=== PATIENT | male | born 1945 | race Caucasian/White ===

== ENCOUNTER 2020-11-18 04:16 | Observation (INO) | payer OTHER ==
[~2020-11-18] VITALS: Ht 198.1 cm; Wt 163.2 kg
[~2020-11-18 04:16] MED LIST: ALBUAER3 IN; ALLO100T PO; AMIO200T33 PO; AMLO-489 PO; APIX5TAB OR; BUDE160A3 INH; COLC1TAB3 PO; FEBU40TA PO; FLUO-125 PO; GABA800T97 PO; IMIQ5CRE4 TOP; INSUPOW; INSUPOW SC; ISOS10TA45 PO; LACT12LO26; LOSA-39 PO; PROP60CA34 PO; SIMV-8 PO; TAMS0.4C36 PO; TORS20TA20 PO; VENL1TAB99 PO; WARF3TAB20 PO; WARF3TAB22 PO
[2020-11-18] MEDS ORDERED: ONDANSETRON HCL 4 MG/2 ML VIAL IV ONE ×2 (04:30→07:00)
[2020-11-18] MEDS ORDERED: MORPHINE SULFATE 4 MG/ML SYR/VIAL IV ONE (04:30)
[2020-11-18 05:23] LABS: Basophils # (auto) 0.1 10 ^3/uL (0-0.2); Basophils % (auto) 0.6 % (0.0-2.0); Eosinophils # (auto) 0.5 10 ^3/uL (0-0.8); Eosinophils % (auto) 3.4 % (0.0-7.0); Hematocrit 49.1 % (41.0-53.0); Hemoglobin 15.8 g/dL (13.5-17.5); Lymphocytes # (auto) 1.9 10 ^3/uL (0.4-5.4); Lymphocytes % (auto) 14.1 % (10.0-50.0); Mean Corpuscular Hemoglobin 28.6 pg (28.0-32.0); Mean Corpuscular Hgb Conc. 32.3 g/dL (32.0-36.0); Mean Corpuscular Volume 88.6 fL (80.0-100.0); Monocytes # (auto) 1.4 10 ^3/uL (0-1.3); Monocytes % (auto) 10.4 % (0.0-12.0); Neutrophils # (auto) 9.6 10 ^3/uL (1.6-8.6); Neutrophils % (auto) 71.5 % (37.0-80.0); Platelet Count (auto) 254 10^3/uL (140-450); Red Blood Cells 5.54 10^6/uL (4.5-5.90); Red Cell Distribution Width 15.6 % (11.8-14.3); White Blood Cell 13.4 10^3/uL (4.4-10.8)
[2020-11-18 05:44] LABS: Amylase 106 U/L (25-115); Anion Gap 7 (5-15); Blood Urea Nitrogen 28 mg/dL (7-18); Calcium 9.3 mg/dL (8.5-10.1); Carbon Dioxide 22 mmol/L (21-32); Chloride 111 mmol/L (98-107); Glucose 82 mg/dL (74-106); Lipase 64 U/L (73-393); Potassium 3.7 mmol/L (3.5-5.1); Sodium 140 mmol/L (136-145)
[2020-11-18 05:50] LABS: Alanine Aminotransferase 20 U/L (16-61); Alkaline Phosphatase 111 U/L (45-117); Aspartate Aminotransferase 25 U/L (15-37); BUN/Creatinine Ratio 12.7; Bilirubin, Total 0.7 mg/dL (0.2-1.0); GFR African American 38 mL/min; GFR Non-African American 31 mL/min; Total Protein 7.9 g/dL (6.4-8.2)
[2020-11-18] MEDS ORDERED: LABETALOL HCL 5 MG/ML 4ML SYRINGE IV ONE (07:00)
[2020-11-18 08:38] LABS: Urine Bacteria NONE SEEN /hpf (None Seen); Urine Blood 1+ /uL (Negative); Urine Specific Gravity 1.018 (1.001-1.035); Urine WBC <1 /hpf (0 - 3)
[2020-11-18 08:55] LABS: INR 1.13 (0.9-1.15)
[2020-11-18] MEDS ORDERED: NITROGLYCERIN 0.4 MG SL TAB SL PRN (12:45)
[2020-11-18] MEDS ORDERED: HEPARIN SODIUM (PORCINE) 5000 UNITS/ML 1ML VIAL IV ONE ×2 (12:45→13:45)
[2020-11-18] MEDS ORDERED: MORPHINE SULF INJ 2 MG/ML SYRINGE 1ML IV PRN (12:45)
[2020-11-18] MEDS ORDERED: ONDANSETRON HCL 4 MG/2 ML VIAL IV PRN (12:45)
[2020-11-18] MEDS ORDERED: DEXTROSE (50%) 50ML SYRG IV PRN (12:45)
[2020-11-18] MEDS ORDERED: hydrALAZINE HCL 20 MG/ML VL IV PRN (13:00)
[2020-11-18 13:20] LABS: Basophils # (auto) 0.1 10 ^3/uL (0-0.2); Basophils % (auto) 0.5 % (0.0-2.0); Eosinophils # (auto) 0.1 10 ^3/uL (0-0.8); Eosinophils % (auto) 0.8 % (0.0-7.0); Hematocrit 48.4 % (41.0-53.0); Hemoglobin 15.6 g/dL (13.5-17.5); Lymphocytes # (auto) 2.2 10 ^3/uL (0.4-5.4); Lymphocytes % (auto) 18.3 % (10.0-50.0); Mean Corpuscular Hemoglobin 28.5 pg (28.0-32.0); Mean Corpuscular Hgb Conc. 32.3 g/dL (32.0-36.0); Mean Corpuscular Volume 88.1 fL (80.0-100.0); Monocytes # (auto) 1.2 10 ^3/uL (0-1.3); Monocytes % (auto) 9.6 % (0.0-12.0); Neutrophils # (auto) 8.6 10 ^3/uL (1.6-8.6); Neutrophils % (auto) 70.8 % (37.0-80.0); Platelet Count (auto) 243 10^3/uL (140-450); Red Blood Cells 5.49 10^6/uL (4.5-5.90); Red Cell Distribution Width 15.9 % (11.8-14.3); White Blood Cell 12.2 10^3/uL (4.4-10.8)
[2020-11-18] MEDS ORDERED: GASTROGRAFIN 120 ML SOL ONE ×2 (13:22→13:56)
[2020-11-18 13:32] LABS: INR 1.13 (0.9-1.15); Partial Thromboplastin Time 33.8 sec (23.0-31.2)
[2020-11-18] MEDS ORDERED: ALBUTEROL SULF HFA 90MCG INH 200DOSE IN PRN (14:00)
[2020-11-18 16:21] VITALS: BP 188/87
[2020-11-18] MEDS: HEPARIN DRIP/D5W 100UNITS/ML 250 ML IV SCH (17:09)
[2020-11-18] MEDS: D5W/SOD CHL 0.45% 1,000 ML IV SCH ×2 (17:10→22:16)
[2020-11-18 17:30] VITALS: BP 152/78
[2020-11-18] MEDS ORDERED: HYDROmorphone HCL 2 MG/ML VL IV PRN (17:30)
[2020-11-18] MEDS ORDERED: diphenhdrAMINE HCL 50 MG/1 ML VL IV ONE (17:30)
[2020-11-18] MEDS ORDERED: OPTISON 3ml Vial for INJ IV ONE (17:32)
[2020-11-18] MEDS: InsuLIN REG 1unit/0.01ml Soln (100units/ml) SC SCH (18:13)
[2020-11-18] MEDS: ACCU-CHEK COMFORT CURVE STRIP VI SCH (18:13)
[2020-11-18 18:46] VITALS: BP 135/82
[2020-11-18 19:57] LABS: INR 1.15 (0.9-1.15); Partial Thromboplastin Time 39.5 sec (23.0-31.2)
[2020-11-18 22:00] VITALS: BP 160/74
[2020-11-18] MEDS: HYDROmorphone HCL 2 MG/ML VL IV PRN (22:33)
[2020-11-19] MEDS ORDERED: METOPROLOL TARTRATE 50 MG TAB PO ONE (00:15)
[2020-11-19] MEDS: InsuLIN REG 1unit/0.01ml Soln (100units/ml) SC SCH ×5 (00:28→23:35)
[2020-11-19] MEDS ORDERED: METOPROLOL TARTRATE 1MG/1ML-5ML VIAL IV ONE (00:30)
[2020-11-19 01:19] LABS: INR 1.14 (0.9-1.15); Partial Thromboplastin Time 45.8 sec (23.0-31.2)
[2020-11-19 05:00] VITALS: BP 151/64
[2020-11-19] MEDS: ACCU-CHEK COMFORT CURVE STRIP VI SCH ×5 (05:34→23:24)
[2020-11-19 07:36] LABS: Basophils # (auto) 0 10 ^3/uL (0-0.2); Basophils % (auto) 0.3 % (0.0-2.0); Eosinophils # (auto) 0.4 10 ^3/uL (0-0.8); Eosinophils % (auto) 2.3 % (0.0-7.0); Hematocrit 46.9 % (41.0-53.0); Hemoglobin 15.3 g/dL (13.5-17.5); Lymphocytes # (auto) 2.6 10 ^3/uL (0.4-5.4); Lymphocytes % (auto) 17.2 % (10.0-50.0); Mean Corpuscular Hemoglobin 28.8 pg (28.0-32.0); Mean Corpuscular Hgb Conc. 32.6 g/dL (32.0-36.0); Mean Corpuscular Volume 88.5 fL (80.0-100.0); Monocytes % (auto) 13.1 % (0.0-12.0); Neutrophils # (auto) 10.1 10 ^3/uL (1.6-8.6); Neutrophils % (auto) 67.1 % (37.0-80.0); Platelet Count (auto) 225 10^3/uL (140-450); Red Blood Cells 5.31 10^6/uL (4.5-5.90); Red Cell Distribution Width 15.9 % (11.8-14.3); White Blood Cell 15.1 10^3/uL (4.4-10.8)
[2020-11-19 08:00] VITALS: BP 137/60
[2020-11-19 08:04] LABS: INR 1.18 (0.9-1.15); Partial Thromboplastin Time 53.3 sec (23.0-31.2)
[2020-11-19] MEDS: D5W/SOD CHL 0.45% 1,000 ML IV SCH ×2 (08:45→18:55)
[2020-11-19 09:00] VITALS: BP 137/60
[2020-11-19 10:40] LABS: Albumin 2.8 g/dL (3.4-5.0); Potassium 4.4 mmol/L (3.5-5.1)
[2020-11-19 10:44] LABS: BUN/Creatinine Ratio 13.9; Bilirubin, Total 0.8 mg/dL (0.2-1.0); Total Protein 7.4 g/dL (6.4-8.2)
[2020-11-19 13:00] VITALS: BP 161/76
[2020-11-19] MEDS: HEPARIN DRIP/D5W 100UNITS/ML 250 ML IV SCH (13:49)
[2020-11-19 14:20] LABS: INR 1.18 (0.9-1.15); Partial Thromboplastin Time 54.3 sec (23.0-31.2)
[2020-11-19 17:00] VITALS: BP 147/92
[2020-11-19] MEDS: HYDROmorphone HCL 2 MG/ML VL IV PRN ×2 (17:46→23:24)
[2020-11-19 20:28] LABS: INR 1.18 (0.9-1.15); Partial Thromboplastin Time 55.2 sec (23.0-31.2)
[2020-11-19 22:00] VITALS: BP 168/79
[2020-11-20] MEDS: HYDROmorphone HCL 2 MG/ML VL IV PRN ×2 (03:40→08:12)
[2020-11-20] MEDS: D5W/SOD CHL 0.45% 1,000 ML IV SCH ×2 (03:40→15:12)
[2020-11-20 05:00] VITALS: BP 158/85
[2020-11-20] MEDS: HEPARIN DRIP/D5W 100UNITS/ML 250 ML IV SCH (05:44)
[2020-11-20] MEDS: ACCU-CHEK COMFORT CURVE STRIP VI SCH ×3 (05:44→17:59)
[2020-11-20] MEDS: HYDROcodone-ACET 10/325MG TAB PO PRN ×2 (05:46→15:12)
[2020-11-20] MEDS: InsuLIN REG 1unit/0.01ml Soln (100units/ml) SC SCH ×3 (05:59→17:59)
[2020-11-20 07:16] LABS: Basophils # (auto) 0.1 10 ^3/uL (0-0.2); Basophils % (auto) 0.6 % (0.0-2.0); Eosinophils # (auto) 0.7 10 ^3/uL (0-0.8); Eosinophils % (auto) 6.1 % (0.0-7.0); Hemoglobin 14.7 g/dL (13.5-17.5); Lymphocytes # (auto) 2.8 10 ^3/uL (0.4-5.4); Lymphocytes % (auto) 22.7 % (10.0-50.0); Mean Corpuscular Hemoglobin 28.8 pg (28.0-32.0); Mean Corpuscular Hgb Conc. 32.7 g/dL (32.0-36.0); Mean Corpuscular Volume 87.9 fL (80.0-100.0); Monocytes # (auto) 1.8 10 ^3/uL (0-1.3); Monocytes % (auto) 14.3 % (0.0-12.0); Neutrophils # (auto) 6.9 10 ^3/uL (1.6-8.6); Neutrophils % (auto) 56.3 % (37.0-80.0); Nucleated Red Blood Cells % 0.2 %; Platelet Count (auto) 203 10^3/uL (140-450); Red Blood Cells 5.12 10^6/uL (4.5-5.90); Red Cell Distribution Width 15.5 % (11.8-14.3); White Blood Cell 12.2 10^3/uL (4.4-10.8)
[2020-11-20 07:33] LABS: Albumin 2.6 g/dL (3.4-5.0); Calcium 8.7 mg/dL (8.5-10.1); Potassium 4.1 mmol/L (3.5-5.1)
[2020-11-20 07:36] LABS: BUN/Creatinine Ratio 12.4; Total Protein 7.2 g/dL (6.4-8.2)
[2020-11-20 07:40] LABS: INR 1.16 (0.9-1.15); Partial Thromboplastin Time 53.3 sec (23.0-31.2)
[2020-11-20 08:42] VITALS: BP 142/57
[2020-11-20] MEDS ORDERED: COLCHICINE 0.6 MG CAP PO SCH (09:15)
[2020-11-20] MEDS ORDERED: AMIODARONE HCL 200 MG TAB PO SCH ×3 (09:15→10:00)
[2020-11-20] MEDS ORDERED: TORSEMIDE 20 MG TAB PO SCH (10:00)
[2020-11-20] MEDS ORDERED: FLUoxetine HCL 20 MG CAP PO SCH (10:00)
[2020-11-20] MEDS ORDERED: ALLOPURINOL 100 MG TAB PO SCH (10:00)
[2020-11-20] MEDS ORDERED: APIXABAN 5 MG TAB PO SCH (10:00)
[2020-11-20] MEDS ORDERED: GABAPENTIN 400 MG CAP PO SCH (10:00)
[2020-11-20] MEDS ORDERED: COLCHICINE 0.6 MG CAP PO PRN (10:30)
[2020-11-20 12:33] VITALS: BP 122/79
[2020-11-20] MEDS ORDERED: AMIODARONE HCL 200 MG TAB PO ONE (14:00)
[2020-11-20] MEDS ORDERED: dilTIAZem 25 MG/5 ML VIAL IV ONE (16:00)
[2020-11-20 16:57] VITALS: BP 150/48
[2020-11-20 17:00] VITALS: BP 141/107
[2020-11-20 17:15] VITALS: BP 142/79
[2020-11-20] MEDS ORDERED: ATORVASTATIN 20 MG TAB PO SCH (22:00)
[2020-11-20] MEDS ORDERED: TAMSULOSIN HYDROCHLORIDE 0.4 MG CAP PO SCH (22:00)
== END 2020-11-20 19:38 | disposition home or self-care (01) ==
LOC: EDBD 04:16 → ER 04:16 → OVERFLOW 13:27 → TELE 13:27 → UNDOADMOB 13:27 → OVERFLOW 16:41 → WEST WING 16:41 → TELE-WESTW 11-19 23:47 → WEST WING 11-19 23:47 → UNDODISOB 11-20 19:38
PROVIDERS: ADMIT Hospitalist; ATTEND Hospitalist
DX: K43.6 Other and unspecified ventral hernia with obstruction, without gangrene (principal); K56.609 Unspecified intestinal obstruction, unspecified as to partial versus complete obstruction; Z20.822 Contact with and (suspected) exposure to COVID-19; N17.9 Acute kidney failure, unspecified; I13.0 Hypertensive heart and chronic kidney disease with heart failure and stage 1 through stage 4 chronic kidney disease, or unspecified chronic kidney disease; I50.9 Heart failure, unspecified; N18.30 Chronic kidney disease, stage 3 unspecified; E11.22 Type 2 diabetes mellitus with diabetic chronic kidney disease; I48.20 Chronic atrial fibrillation, unspecified; E66.9 Obesity, unspecified; Z79.899 Other long term (current) drug therapy; Z79.4 Long term (current) use of insulin; Z79.01 Long term (current) use of anticoagulants
CPT/HCPCS: 36415; 36600; 71045; 74018; 74176; 74250; 80053; 81001; 82150; 82805; 82962; 83605; 83690; 84484; 85025; 85610; 85730; 87040; 87086; 87426; 93005; 93306; 96361; 96365; 96366; 96372; 96375; 96376; 97163; 99285; G0378; J0360; J1170; J1200; J1644; J1815; J2270; J2405; Q9956; Q9963

== ENCOUNTER 2021-02-09 19:49 | Emergency (ER) | payer OTHER ==
[~2021-02-09] VITALS: Ht 198.1 cm; Wt 155.6 kg
[~2021-02-09 19:49] MED LIST changes: -FLUO-125 PO; -WARF3TAB20 PO; -WARF3TAB22 PO
[2021-02-09 21:40] VITALS: BP 120/62
[2021-02-09 21:55] LABS: Basophils # (auto) 0.1 10 ^3/uL (0-0.2); Basophils % (auto) 0.7 % (0.0-2.0); Eosinophils # (auto) 0.6 10 ^3/uL (0-0.8); Eosinophils % (auto) 6.9 % (0.0-7.0); Hematocrit 43.4 % (41.0-53.0); Lymphocytes % (auto) 33.4 % (10.0-50.0); Mean Corpuscular Hemoglobin 28.9 pg (28.0-32.0); Mean Corpuscular Hgb Conc. 32.4 g/dL (32.0-36.0); Mean Corpuscular Volume 89.3 fL (80.0-100.0); Monocytes # (auto) 0.9 10 ^3/uL (0-1.3); Monocytes % (auto) 10.6 % (0.0-12.0); Neutrophils # (auto) 4.3 10 ^3/uL (1.6-8.6); Neutrophils % (auto) 48.4 % (37.0-80.0); Red Blood Cells 4.86 10^6/uL (4.5-5.90); Red Cell Distribution Width 16.5 % (11.8-14.3); White Blood Cell 8.9 10^3/uL (4.4-10.8)
[2021-02-09 22:09] LABS: INR 1.11 (0.9-1.15); Partial Thromboplastin Time 34.9 sec (23.0-31.2)
[2021-02-09 22:12] LABS: Calcium 8.6 mg/dL (8.5-10.1); Potassium 4.1 mmol/L (3.5-5.1)
[2021-02-09 22:15] LABS: Albumin 2.9 g/dL (3.4-5.0); BUN/Creatinine Ratio 13.9
[2021-02-09 22:18] LABS: Bilirubin, Total 0.6 mg/dL (0.2-1.0); Total Protein 7.1 g/dL (6.4-8.2)
== END 2021-02-09 21:23 | disposition home or self-care (01) ==
LOC: ER 19:52
DX: R04.0 Epistaxis (principal); I48.91 Unspecified atrial fibrillation; E11.9 Type 2 diabetes mellitus without complications; M10.9 Gout, unspecified; E78.5 Hyperlipidemia, unspecified; I10 Essential (primary) hypertension; Z95.0 Presence of cardiac pacemaker; Z79.4 Long term (current) use of insulin; Z79.899 Other long term (current) drug therapy
CPT/HCPCS: 36415; 80053; 85025; 85610; 85730